=== PATIENT | male | born 2000 ===

== ENCOUNTER 2022-06-23 17:47 | Emergency (ER) | payer MEDICAID ==
[~2022-06-23] VITALS: Ht 170.2 cm; Wt 61.4 kg
[2022-06-23 17:52] VITALS: TEMP 98.2
[2022-06-23] MEDS ORDERED: PREDNISONE20 MG PO (19:11)
[2022-06-23 19:20] VITALS: BP 139/74; PULSE 62
== END 2022-06-23 19:23 | disposition home or self-care (01) ==
LOC: COL.ER 17:47
DX: R21 Rash and other nonspecific skin eruption (principal); Z28.310 Unvaccinated for COVID-19